=== PATIENT | female | born 1940 | race Caucasian/White ===

== ENCOUNTER 2023-12-21 08:18 | Emergency (ER) | payer OTHER ==
[~2023-12-21] VITALS: Ht 154.9 cm; Wt 68.6 kg
[2023-12-21 08:56] VITALS: BP 192/65; PULSE 71
[2023-12-21 08:58] VITALS: RESP 12; O2SAT 95
[2023-12-21] MEDS: LOSARTAN POTASSIUM 50 MG TAB PO ONE (09:12)
[2023-12-21 09:27] LABS: Basophils # (auto) 0.1 10 ^3/uL (0-0.2); Basophils % (auto) 2.5 % (0.0-2.0); Eosinophils # (auto) 0.2 10 ^3/uL (0-0.8); Eosinophils % (auto) 3.4 % (0.0-7.0); Hematocrit 44.1 % (36.0-46.0); Hemoglobin 14.7 g/dL (12.2-16.2); Lymphocytes # (auto) 1.6 10 ^3/uL (0.4-5.4); Lymphocytes % (auto) 34.5 % (10.0-50.0); Mean Corpuscular Hemoglobin 32.4 pg (28.0-32.0); Mean Corpuscular Hgb Conc. 33.3 g/dL (32.0-36.0); Mean Corpuscular Volume 97.3 fL (80.0-100.0); Monocytes # (auto) 0.4 10 ^3/uL (0-1.3); Monocytes % (auto) 7.5 % (0.0-12.0); Neutrophils # (auto) 2.5 10 ^3/uL (1.6-8.6); Neutrophils % (auto) 52.1 % (37.0-80.0); Nucleated Red Blood Cells % 0.1 %; Red Blood Cells 4.53 10^6/uL (4.0-5.20); Red Cell Distribution Width 14.1 % (11.8-14.3); White Blood Cell 4.8 10^3/uL (4.4-10.8)
[2023-12-21 09:42] LABS: Chloride 109 mmol/L (98-107); Potassium 4.4 mmol/L (3.5-5.1); Sodium 141 mmol/L (136-145)
[2023-12-21 09:43] LABS: Anion Gap 5 (5-15); Calcium 10.3 mg/dL (8.5-10.1); Carbon Dioxide 27 mmol/L (20-30)
[2023-12-21 09:48] LABS: BUN/Creatinine Ratio 16.5 (10.0-20.0); Blood Urea Nitrogen 14 mg/dL (9-23); Glucose 108 mg/dL (74-106)
== END 2023-12-21 10:16 | disposition home or self-care (01) ==
LOC: ER 08:18
DX: K92.1 Melena (principal); I16.0 Hypertensive urgency; Z91.041 Radiographic dye allergy status
CPT/HCPCS: 36415; 74176; 80048; 85025

== ENCOUNTER → 2024-01-09 | Outpatient (CLI) | payer OTHER | END | disposition home or self-care (01) | LOC: XYW 12:40 | PROVIDERS: ATTEND Student in an Organized Health Care Education/Training Program | DX: I11.9 Hypertensive heart disease without heart failure (principal) | CPT/HCPCS: 93306 ==